=== PATIENT | female | born 1945 | race Caucasian/White ===

== ENCOUNTER → 2018-07-05 | Outpatient (CLI) | payer MEDICARE, BC ==
--- NOTE | 2018-07-05 10:08 | Diagnostic Imaging Report ---
INDICATION: Left hip pain, chronic. COMPARISON: None available. TECHNIQUE: AP and frog-leg lateral views of left hip. FINDINGS: Normal alignment left hip. Very mild asymmetric joint space narrowing in the superior aspect of the left hip. No acetabular retroversion. Normal femoral head and neck offset. No features of osteonecrosis. No fracture. Visualized aspects of the left SI joint are normal. IMPRESSION: Mild degenerative arthritis of left hip. No acute osseous abnormality. Dictated by: Dictated on workstation # [id number]
== END ==
LOC: RAD FS 09:41
PROVIDERS: ATTEND Family Medicine
DX: M16.12 Unilateral primary osteoarthritis, left hip (principal)
CPT/HCPCS: 73502

== ENCOUNTER 2019-03-09 13:39 | Outpatient (RCR) | payer MEDICARE, BC | END 2019-04-05 | disposition home or self-care (01) | LOC: ONC 13:39 | PROVIDERS: ATTEND Internal Medicine Hematology & Oncology | DX: D50.9 Iron deficiency anemia, unspecified (principal); I10 Essential (primary) hypertension; E11.9 Type 2 diabetes mellitus without complications; Z80.3 Family history of malignant neoplasm of breast; Z90.89 Acquired absence of other organs; Z98.890 Other specified postprocedural states | CPT/HCPCS: 99213; 99214 ==